=== PATIENT | female | born 1945 | race Caucasian/White ===

== ENCOUNTER 2018-04-29 18:56 | Inpatient (IN) | payer OTHER, MEDICAID ==
[~2018-04-29] VITALS: Ht 165.1 cm; Wt 108.9 kg
--- NOTE | ~2018-04-29 | EKG ---
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
--- NOTE | ~2018-04-29 | EKG ---
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
[~2018-04-29 18:56] MED LIST: ACETAMINOPHEN325 M1; ACETAMINOPHEN325 M1 PO; ACETAMINOPHN-T1 EACH PO; ALBUTEROL INH; ALBUTEROL2.5 MG/0.5; ALLEGRA180 MG PO; ALLER-EASE180 MG PO; ALTERA NEBULIZ1 EACH; AMBIEN 5 MG TABL5 M1 PO; ASPIRIN325 PO; BAYER CHEWABLE81 MG PO; CEFTIN; CEFTIN500 MG PO; COLACE100 MG; COLACE100 MG PO; COZAAR 50 MG TA50 M2 PO; CYCLOBENZAPRINE PO; DOXEPIN 50MG CA50 M1 PO; DOXEPIN 50MG CA50 MG; DOXEPIN 75 MG C75 M1 PO; DOXEPIN HCL100 MG PO; FLAGYL500 MG PO; FLEXERIL PO; FOSAMAX 35 MG35 M1 PO; FOSAMAX 35 MG35 MG PO; FUROSEMIDE 20 M20 M1 PO; GLUCOPHAGE500 MG PO; GLUMETZA500 PO; GLYCOLAX POWDER17 G1 PO; HYDROCODON-ACE1 EAC7; HYDROCODON-ACE1 EAC7 PO; IBUPROFEN 800800 M1 PO; IRON PO; KEFLEX500 M1 PO; LASIX 40 MG TAB40 MG PO; LEVOTHYROXINE0.05 MG PO; LISINOPRIL20 MG PO; LORAZEPAM 1 MG T1 MG PO; MAGNESIUM400 MG PO; MOBIC15 MG PO; MOTION RELIEF25 MG PO; MULTIVITAMINS PO; MYCOSTATIN; MYRBETRIQ50 MG PO; NEURONTIN 300M300 M2 PO; NEURONTIN 400400 M1 PO; NEURONTIN 400M400 M2 PO; NEXIUM40 MG PO; NORCO 5-325 TA1 EACH; NORCO 5-325 TA1 EACH PO; NORVASC10 MG PO; NYSTATIN 1100000 U/M PO; OXYCODONE HCL 55 MG PO; PERCOCET 5-3251 EACH PO; POTASSIUM20 PO; PREDNISONE 10 M10 M1; PREDNISONE 10 M10 M1 PO; PREDNISONE 20 M20 M1 PO; PRINIVIL20 MG PO; PROZAC 20 MG20 MG PO; PROZAC40 MG PO; QUALAQUIN324 MG PO; QVAR HFA 880 MCG/UN1 INH; ROBAXIN 750 MG750 M1 PO; SEPTRA PO; SIMVASTATIN40 MG PO; SINGULAIR 10 MG10 M1 PO; SYNTHROID50 MCG PO; TIZANIDINE HCL2 M1 PO; TRAZODONE HCL100 MG PO; ULTRACET TABLE1 EACH PO; VASOLEX OINTMEN60 G1 TP; VENTOLIN HFA INH8 GM INH; VISTARIL 25 MG25 M1 PO; VITAMIN D31000 UNI2 PO; VITAMIN E400 UNIT PO; VOLTAREN 0.1% EY5 M1; ZPAK PO; [UNRECOGNIZED DRUG - OTHER]
[2018-04-29 18:58] VITALS: BP 168/94
[2018-04-29 19:44] LABS: ABSOLUTE BASOPHILS 0.1 thou/uL (0.0-0.2); ABSOLUTE EOSINOPHILS 0.1 thou/uL (0.0-0.7); ABSOLUTE LYMPHOCYTES 1.4 thou/uL (0.8-5.3); ABSOLUTE MONOCYTES 0.5 thou/uL (0.0-1.2); ABSOLUTE NEUTROPHILS 3.1 thou/uL (1.6-8.1); BASOPHILS 2.3 %; EOSINOPHILS 1.3 %; HEMATOCRIT 36.5 % (37.0-47.0); HEMOGLOBIN 11.2 gm/dL (12.0-15.0); LYMPHOCYTES 26.4 %; MCH 22.7 pg (26.0-34.0); MCHC 30.8 g/dL (28.0-37.0); MCV 73.8 fL (80.0-100.0); MONOCYTES 9.3 %; MPV 7.4 fl. (7.2-11.1); NUCLEATED RBCS 0 /100WBC; PLATELET COUNT* 313 thou/uL (150-400); POLYS 60.7 %; RBC 4.95 mil/uL (4.20-5.00); RDW-CV 16.4 % (10.5-14.5); WBC 5.1 thou/uL (4.0-11.0)
[2018-04-29 19:55] LABS: ANION GAP 6 mmol/L (7-16); BUN 6 mg/dL (7-18); CALCIUM 9.6 mg/dL (8.5-10.1); CHLORIDE 100 mmol/L (98-107); CO2 31 mmol/L (21-32); CREATININE 0.7 mg/dL (0.6-1.3); GLUCOSE 101 mg/dL (70-99); INR 1.1; POTASSIUM 3.6 mmol/L (3.5-5.1); PROTIME 10.3 Seconds (9.20-11.50); SODIUM 137 mmol/L (136-145)
[2018-04-29 20:05] LABS: ALBUMIN 2.8 g/dL (3.4-5.0); ALKALINE PHOSPHATASE 103 U/L (46-116); NT-PRO BRAIN NAT PEPTIDE 550 pg/mL (<300); SGOT 23 U/L (15-37); SGPT 18 U/L (30-65); TOTAL BILIRUBIN 0.4 mg/dL (<0.1-1.0); TROPONIN-I LEVEL <0.06 ng/mL (<0.06)
[2018-04-29 20:10] LABS: ANISOCYTOSIS Occasional
[2018-04-29 20:15] LABS: MICROCYTES 2+; POIKILOCYTOSIS Occasional
[2018-04-29 20:16] LABS: PLATELET ESTIMATE ADEQUATE
[2018-04-29 20:19] LABS: URINE BILIRUBIN NEGATIVE (Negative); URINE BLOOD NEGATIVE (Negative); URINE CLARITY CLEAR; URINE COLOR YELLOW; URINE GLUCOSE-RANDOM NEGATIVE (Negative); URINE KETONES 1+ (Negative); URINE LEUKOCYTES-REFLEX NEGATIVE (Negative); URINE NITRITE-REFLEX NEGATIVE (Negative); URINE PROTEIN NEGATIVE (Negative); URINE SPECIFIC GRAVITY 1.015 (1.005-1.030); URINE UROBILINOGEN 0.2 E.U./dl (0.2-1.0)
[2018-04-29 21:04] VITALS: BP 159/78
[2018-04-30 04:12] LABS: HEMATOCRIT 35.2 % (37.0-47.0); HEMOGLOBIN 10.9 gm/dL (12.0-15.0); MCH 22.8 pg (26.0-34.0); MCHC 30.9 g/dL (28.0-37.0); MCV 73.7 fL (80.0-100.0); MPV 7.9 fl. (7.2-11.1); RBC 4.77 mil/uL (4.20-5.00); RDW-CV 16.1 % (10.5-14.5); WBC 3.8 thou/uL (4.0-11.0)
[2018-04-30 04:45] LABS: ALBUMIN 2.5 g/dL (3.4-5.0); CALCIUM 9.3 mg/dL (8.5-10.1); CREATININE 0.7 mg/dL (0.6-1.3); POTASSIUM 3.9 mmol/L (3.5-5.1); TOTAL BILIRUBIN 0.3 mg/dL (<0.1-1.0); TOTAL PROTEIN 7.5 g/dL (6.4-8.2)
[2018-04-30 08:00] VITALS: BP 130/70
--- NOTE | 2018-04-30 10:36 | EKG ---
[place] [address] ELECTROCARDIOGRAM REPORT Name: ANA ROSA TRAN Room: [address] ADM IN .R.#: [id number] Admission: 04/29/18 Attend Phys: Adarsh See, Discharge: Date of : 49 Report #: [id number] THIS REPORT FOR: //name// [facility] ED Test Date: 2018-04-29 Test Time: 19:24:20 Pat Name: ANA ROSA TRAN Department: Room: [address] Gender: F Events Administrative Assistant: COLEEN : 1945 Requested By: Kriss Mayo Order Number: [id number] Reading MD: Candido Lopez Measurements Intervals [place] Rate: 93 P: 64 CT: 175 QRS: -18 QRSD: 93 T: 3 QT: 377 QTc: 469 Interpretive Statements Sinus rhythm Borderline left axis deviation Compared to ECG 06/26/2013 07:39:43 No significant changes Electronically Signed On 04-30-2018 10:36:42 CDT by Candido Lopez [email or web address] <ELECTRONICALLY SIGNED> By: Maye Lopez MD, [facility] 04/30/18 1036 23 23 Maye Lopez MD, [facility] /EPI
--- NOTE | 2018-04-30 10:36 | EKG ---
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
[2018-04-30 17:11] VITALS: BP 137/55
[2018-04-30 20:20] VITALS: BP 126/58
[2018-05-01 09:10] VITALS: BP 132/85
[2018-05-01 16:00] VITALS: BP 145/76
[2018-05-01 20:20] VITALS: BP 115/63
[2018-05-02 04:32] LABS: ABSOLUTE BASOPHILS 0.1 thou/uL (0.0-0.2); ABSOLUTE EOSINOPHILS 0.2 thou/uL (0.0-0.7); ABSOLUTE LYMPHOCYTES 1.9 thou/uL (0.8-5.3); ABSOLUTE MONOCYTES 0.6 thou/uL (0.0-1.2); BASOPHILS 1.4 %; EOSINOPHILS 4.3 %; HEMATOCRIT 31.6 % (37.0-47.0); HEMOGLOBIN 9.7 gm/dL (12.0-15.0); LYMPHOCYTES 39.8 %; MCH 22.9 pg (26.0-34.0); MCHC 30.7 g/dL (28.0-37.0); MCV 74.8 fL (80.0-100.0); MONOCYTES 12.9 %; MPV 7.5 fl. (7.2-11.1); NUCLEATED RBCS 0 /100WBC; PLATELET COUNT* 244 thou/uL (150-400); POLYS 41.6 %; RBC 4.22 mil/uL (4.20-5.00); RDW-CV 16.5 % (10.5-14.5); WBC 4.8 thou/uL (4.0-11.0)
[2018-05-02 04:47] LABS: ALBUMIN 2.5 g/dL (3.4-5.0); CALCIUM 8.7 mg/dL (8.5-10.1); CREATININE 0.7 mg/dL (0.6-1.3); TOTAL BILIRUBIN 0.2 mg/dL (<0.1-1.0); TOTAL PROTEIN 5.8 g/dL (6.4-8.2)
[2018-05-02 05:36] LABS: PLATELET ESTIMATE ADEQUATE
[2018-05-02 05:37] LABS: HYPOCHROMASIA 1+
[2018-05-02 05:38] LABS: ANISOCYTOSIS 1+; MICROCYTES 1+; POIKILOCYTOSIS 1+
[2018-05-02 08:30] VITALS: BP 118/48
[2018-05-02 17:23] VITALS: BP 145/67
[2018-05-02 22:54] VITALS: BP 115/61
[2018-05-03 04:40] LABS: ABSOLUTE BASOPHILS 0.1 thou/uL (0.0-0.2); ABSOLUTE EOSINOPHILS 0.3 thou/uL (0.0-0.7); ABSOLUTE LYMPHOCYTES 1.9 thou/uL (0.8-5.3); ABSOLUTE MONOCYTES 0.5 thou/uL (0.0-1.2); ABSOLUTE NEUTROPHILS 2.3 thou/uL (1.6-8.1); BASOPHILS 1.3 %; EOSINOPHILS 5.3 %; HEMATOCRIT 31.8 % (37.0-47.0); HEMOGLOBIN 9.6 gm/dL (12.0-15.0); LYMPHOCYTES 37.4 %; MCH 22.5 pg (26.0-34.0); MCHC 30.3 g/dL (28.0-37.0); MCV 74.3 fL (80.0-100.0); MONOCYTES 10.8 %; MPV 7.5 fl. (7.2-11.1); NUCLEATED RBCS 0 /100WBC; PLATELET COUNT* 225 thou/uL (150-400); POLYS 45.2 %; RBC 4.28 mil/uL (4.20-5.00); RDW-CV 16.7 % (10.5-14.5)
[2018-05-03 05:10] LABS: ALBUMIN 2.4 g/dL (3.4-5.0); CALCIUM 8.7 mg/dL (8.5-10.1); CREATININE 0.8 mg/dL (0.6-1.3); POTASSIUM 4.1 mmol/L (3.5-5.1); TOTAL BILIRUBIN 0.2 mg/dL (<0.1-1.0); TOTAL PROTEIN 6.1 g/dL (6.4-8.2)
[2018-05-03 06:11] LABS: PLATELET ESTIMATE ADEQUATE
[2018-05-03 06:12] LABS: ANISOCYTOSIS 1+; HYPOCHROMASIA 1+; MICROCYTES 1+; POIKILOCYTOSIS 1+
[2018-05-03 08:00] VITALS: BP 118/67
[2018-05-03] MEDS ORDERED: GABAPENTIN 100100 MG PO (14:46)
[2018-05-03 14:56] VITALS: BP 118/67
== END 2018-05-03 16:58 | DRG 191 ==
LOC: M.ERS 18:56 → M.TBA-ER 20:24 → M.3W 20:24
PROVIDERS: Emergency Medicine; Internal Medicine; ADMIT Family Medicine
DX: J44.0 Chronic obstructive pulmonary disease with (acute) lower respiratory infection (principal); R65.10 Systemic inflammatory response syndrome (SIRS) of non-infectious origin without acute organ dysfunction; E44.1 Mild protein-calorie malnutrition; J96.10 Chronic respiratory failure, unspecified whether with hypoxia or hypercapnia; M80.022A Age-related osteoporosis with current pathological fracture, left humerus, initial encounter for fracture; J20.9 Acute bronchitis, unspecified; D50.9 Iron deficiency anemia, unspecified; J44.1 Chronic obstructive pulmonary disease with (acute) exacerbation; E66.01 Morbid (severe) obesity due to excess calories; F41.9 Anxiety disorder, unspecified; E78.5 Hyperlipidemia, unspecified; E03.9 Hypothyroidism, unspecified; K59.00 Constipation, unspecified; E78.00 Pure hypercholesterolemia, unspecified; G47.33 Obstructive sleep apnea (adult) (pediatric); E11.42 Type 2 diabetes mellitus with diabetic polyneuropathy; M19.90 Unspecified osteoarthritis, unspecified site; I10 Essential (primary) hypertension; K21.9 Gastro-esophageal reflux disease without esophagitis; G47.00 Insomnia, unspecified; Z68.39 Body mass index [BMI] 39.0-39.9, adult; Z87.81 Personal history of (healed) traumatic fracture; Z85.828 Personal history of other malignant neoplasm of skin; Z79.899 Other long term (current) drug therapy; Z88.0 Allergy status to penicillin; Z88.6 Allergy status to analgesic agent; Z91.048 Other nonmedicinal substance allergy status; Z87.891 Personal history of nicotine dependence; Z91.19 Patient's noncompliance with other medical treatment and regimen; Z99.81 Dependence on supplemental oxygen

== ENCOUNTER 2018-08-16 19:42 | Emergency (ER) | payer OTHER, MEDICAID ==
[~2018-08-16] VITALS: Ht 165.1 cm; Wt 113.4 kg
[~2018-08-16 19:42] MED LIST changes: +GABAPENTIN 100100 MG PO
[2018-08-16] MEDS ORDERED: NORCO 5-325 TA1 EACH PO (20:50)
[2018-08-16 21:22] VITALS: BP 138/91
== END 2018-08-16 21:25 | disposition home or self-care (01) ==
LOC: M.ERS 19:42
DX: S82.091A Other fracture of right patella, initial encounter for closed fracture (principal); E78.5 Hyperlipidemia, unspecified; F32.9 Major depressive disorder, single episode, unspecified; M81.0 Age-related osteoporosis without current pathological fracture; E03.9 Hypothyroidism, unspecified; K21.9 Gastro-esophageal reflux disease without esophagitis; I10 Essential (primary) hypertension; J44.9 Chronic obstructive pulmonary disease, unspecified; Z88.5 Allergy status to narcotic agent; Z88.0 Allergy status to penicillin; Z88.8 Allergy status to other drugs, medicaments and biological substances; W18.39XA Other fall on same level, initial encounter; Y93.89 Activity, other specified; Y92.89 Other specified places as the place of occurrence of the external cause; Y99.8 Other external cause status

== ENCOUNTER 2018-08-25 12:32 | Emergency (ER) | payer OTHER, MEDICAID ==
[~2018-08-25] VITALS: Ht 165.1 cm; Wt 118.8 kg
[2018-08-25 15:22] VITALS: BP 125/70
== END 2018-08-25 15:24 | disposition home or self-care (01) ==
LOC: M.ERS 12:32
DX: S00.83XA Contusion of other part of head, initial encounter (principal); E78.5 Hyperlipidemia, unspecified; F32.9 Major depressive disorder, single episode, unspecified; M81.0 Age-related osteoporosis without current pathological fracture; E03.9 Hypothyroidism, unspecified; K21.9 Gastro-esophageal reflux disease without esophagitis; I10 Essential (primary) hypertension; J44.9 Chronic obstructive pulmonary disease, unspecified; Z88.0 Allergy status to penicillin; Z88.5 Allergy status to narcotic agent; Z88.8 Allergy status to other drugs, medicaments and biological substances; W18.39XA Other fall on same level, initial encounter; Y93.89 Activity, other specified; Y92.89 Other specified places as the place of occurrence of the external cause; Y99.8 Other external cause status

== ENCOUNTER 2018-11-30 18:03 | Inpatient (IN) | payer OTHER, MEDICAID ==
[~2018-11-30] VITALS: Ht 165.1 cm; Wt 117.9 kg
[~2018-11-30 18:03] MED LIST changes: +COZAAR 25 MG TA25 MG PO; -COZAAR 50 MG TA50 M2 PO; -FOSAMAX 35 MG35 M1 PO; +FOSAMAX 70 MG T70 MG PO; -LEVOTHYROXINE0.05 MG PO
[2018-11-30 18:18] VITALS: BP 139/61
[2018-11-30] MEDS ORDERED: UNKNOWN ANTIBIOTIC (18:26)
[2018-11-30 18:32] LABS: URINE BILIRUBIN NEGATIVE (Negative); URINE BLOOD NEGATIVE (Negative); URINE CLARITY CLEAR; URINE COLOR YELLOW; URINE GLUCOSE-RANDOM NEGATIVE (Negative); URINE KETONES NEGATIVE (Negative); URINE PROTEIN 1+ (Negative); URINE SPECIFIC GRAVITY >= 1.030 (1.005-1.030); URINE UROBILINOGEN 0.2 E.U./dl (0.2-1.0)
[2018-11-30 18:37] LABS: URINE LEUKOCYTES-REFLEX 2+ (Negative); URINE NITRITE-REFLEX POSITIVE (Negative)
[2018-11-30 18:45] LABS: SQUAMOUS >10 Many /LPF (0-3)
[2018-11-30 18:46] LABS: BACTERIA-REFLEX >30 Many /HPF (None Seen); HYALINE CASTS 0-3 Few /LPF (None Seen); MUCUS None Seen strn/LPF (None Seen); URINE WBC-REFLEX >25 Many /HPF (0-5)
[2018-11-30 18:47] LABS: CRYSTALS None Seen /LPF (None Seen); URINE RBC None Seen /HPF (0-2)
[2018-11-30 18:54] LABS: ABSOLUTE BASOPHILS 0.1 thou/uL (0.0-0.2); ABSOLUTE EOSINOPHILS 0.1 thou/uL (0.0-0.7); ABSOLUTE MONOCYTES 0.7 thou/uL (0.0-1.2); ABSOLUTE NEUTROPHILS 3.6 thou/uL (1.6-8.1); BASOPHILS 1.2 %; EOSINOPHILS 2.3 %; HEMATOCRIT 35.3 % (37.0-47.0); HEMOGLOBIN 11.2 gm/dL (12.0-15.0); LYMPHOCYTES 30.4 %; MCH 25.1 pg (26.0-34.0); MCHC 31.8 g/dL (28.0-37.0); MCV 78.8 fL (80.0-100.0); MPV 6.8 fl. (7.2-11.1); NUCLEATED RBCS 0 /100WBC; PLATELET COUNT* 161 thou/uL (150-400); POLYS 55.1 %; RBC 4.48 mil/uL (4.20-5.00); RDW-CV 14.3 % (10.5-14.5); WBC 6.5 thou/uL (4.0-11.0)
[2018-11-30 19:08] LABS: ALBUMIN 3.2 g/dL (3.4-5.0); CALCIUM 8.8 mg/dL (8.5-10.1); CREATININE 1.2 mg/dL (0.6-1.3); POTASSIUM 4.1 mmol/L (3.5-5.1); TOTAL BILIRUBIN 0.2 mg/dL (<0.1-1.0); TOTAL PROTEIN 6.5 g/dL (6.4-8.2)
[2018-11-30 20:59] VITALS: BP 119/56
[2018-12-01 07:55] VITALS: BP 153/88
[2018-12-01 15:55] VITALS: BP 148/79
[2018-12-01 20:00] VITALS: BP 136/74
[2018-12-02 04:24] LABS: ABSOLUTE EOSINOPHILS 0.1 thou/uL (0.0-0.7); ABSOLUTE LYMPHOCYTES 1.6 thou/uL (0.8-5.3); ABSOLUTE MONOCYTES 0.5 thou/uL (0.0-1.2); ABSOLUTE NEUTROPHILS 2.1 thou/uL (1.6-8.1); EOSINOPHILS 3.2 %; HEMATOCRIT 34.1 % (37.0-47.0); HEMOGLOBIN 10.8 gm/dL (12.0-15.0); LYMPHOCYTES 36.5 %; MCHC 31.6 g/dL (28.0-37.0); MONOCYTES 12.1 %; MPV 7.4 fl. (7.2-11.1); NUCLEATED RBCS 0 /100WBC; PLATELET COUNT* 136 thou/uL (150-400); POLYS 47.2 %; RBC 4.31 mil/uL (4.20-5.00); RDW-CV 14.6 % (10.5-14.5); WBC 4.5 thou/uL (4.0-11.0)
[2018-12-02 04:45] LABS: CALCIUM 8.4 mg/dL (8.5-10.1); CREATININE 0.9 mg/dL (0.6-1.3); MAGNESIUM 1.8 mg/dL (1.8-2.4); POTASSIUM 3.9 mmol/L (3.5-5.1)
[2018-12-02 07:24] VITALS: BP 158/84
[2018-12-02 16:19] VITALS: BP 149/74
[2018-12-02 19:59] VITALS: BP 148/74
[2018-12-03 05:18] LABS: CALCIUM 8.3 mg/dL (8.5-10.1); CREATININE 0.8 mg/dL (0.6-1.3)
[2018-12-03 07:20] VITALS: BP 119/61
--- NOTE | 2018-12-03 14:52 | EKG ---
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: Jak BLACKBURN : 1945 Requested By: Solomon Dawkins Order Number: [id number] MD: Napoleon Sheppard Measurements Intervals [place] Rate: 78 P: 27 AR: 189 QRS: -12 QRSD: 104 T: 8 QT: 397 QTc: 453 Interpretive Statements Sinus rhythm Left ventricular hypertrophy, by voltage Compared to ECG 04/29/2018 19:24:20 Left ventricular hypertrophy now present Electronically Signed On 12-03-2018 14:51:51 CDT by Napoleon Sheppard [email or web address] <ELECTRONICALLY SIGNED> By: Napoleon Sheppard MD, [facility] 12/03/18 1451 1832 183 Napoleon Sheppard MD, [facility] /EPI
[2018-12-03 15:24] VITALS: BP 119/67
[2018-12-03 23:34] VITALS: BP 139/85
--- NOTE | 2018-12-04 07:56 | CON ---
[address] [address] CONSULTATION Name: ANA ROSA TRAN Room: [address] IN .R.#: [id number] Admission: 11/30/18 Attend Phys: Dustin Montes Discharge: Date of : 49 Report #: [id number] THIS REPORT FOR: //name// CC: Joao Maya DATE OF SERVICE: 12/01/2018 ATTENDING PHYSICIAN: Jermaine Maya DO. REASON FOR EVALUATION: Complicated urinary tract infection due to multiple drug-resistant organisms. HISTORY OF PRESENT ILLNESS: Chart reviewed, the patient examined. This is a 73-year-old female with known history of oxygen- requiring COPD, who generally has been feeling poorly, has a history of recurrent urinary tract infection, was diagnosed as an outpatient. Urinalysis showed marked pyuria. Did have associated symptoms with burning on urination, lower abdominal pain, growth of gram-negative multiple-drug resistant with exception of carbapenems, broad-spectrum, penicillins, and cephalosporins. She apparently had initially responded to therapy, then deteriorated, this prompted ER visit yesterday. Due to failure of outpatient therapy, she was admitted. She is generally lucid at this point. Denies significant change in her pulmonary status at this point, unclear if she has had any fevers or chills, started on meropenem. ALLERGIES: Listed to PENICILLIN, CAUSES URTICARIA. CURRENT MEDICATIONS: Include aspirin, multivitamin, gabapentin, atorvastatin, melatonin, ondansetron, losartan, levothyroxine, meropenem. PAST MEDICAL HISTORY: As noted above, COPD, O2 requiring; hypertension; reflux; hypothyroidism; osteoporosis; depression; morbid obesity; hyperlipidemia. SOCIAL HISTORY: Former smoker. No ethanol or illicit drug use. FAMILY HISTORY: Noncontributory. REVIEW OF SYSTEMS: Denies any significant gastrointestinal-related complaints of nausea, emesis or diarrhea; otherwise, unremarkable 10-point review of systems otherwise noted in history of present illness. PHYSICAL EXAMINATION: GENERAL: She is pleasant. She is in moderate distress at this point. She appears quite uncomfortable and she is morbidly obese. VITAL SIGNS: Temperature 98.9, pulse 77, respirations 20, blood pressure 119/56[place] [address] CONSULTATION Name: ANA ROSA TRAN Room: [address]#: [id number] Admission: 11/30/18 Attend Phys: Dustin Montes Discharge: Date of : 49 Report #: [id number] HEENT: He has got nasal cannula oxygen in place. Normocephalic. Extraocular muscles intact. NECK: Supple. LUNGS: Scattered coarse breath sounds, very distant. HEART: Regular, again distant. Appears to be generally regular. There are no appreciated murmur. ABDOMEN: Again wide pannus. There are no overt peritoneal signs. Cannot really to any palpable tenderness. EXTREMITIES: Distal lower extremities have edema. GENITOURINARY: Deferred. RECTAL: Deferred. LABORATORY DATA: Blood cultures sterile thus far. Lactic acid 0.8. Electrolytes: Sodium 139, potassium 4.1, chloride 101, bicarbonate is 34, BUN and creatinine 24 and 1.2, anion gap of 4. LFTs unremarkable. Albumin 3.2, total protein 6.5. Estimated GFR of 44. CBC: White count 6.5, H and H 11.2 and 35.3, platelets of 161. Urinalysis, greater than 25 white cells, greater than 30 bacteria, greater than 10 squamous. ASSESSMENT: Complicated urinary tract infection due to multiple resistant gram-negative, continue the carbapenem. Urinalysis certainly suggests significant infection. We will see how she does clinically over the course of next 24-48 hours, likely arrange for outpatient parenteral therapy given the lack of oral options at this point. We will monitor expectantly. Certainly at risk for nosocomial-related infectious complications including pneumonitis. We will add incentive spirometer and I certainly worry about her limited mobility as well risk for other complications. <ELECTRONICALLY SIGNED> By: Jax Carnes MD 12/04/18 0756 1327 [id number] Carnes MD /nt
[2018-12-04 08:15] VITALS: BP 155/86
[2018-12-04 12:51] LABS: URINE BILIRUBIN NEGATIVE (Negative); URINE BLOOD NEGATIVE (Negative); URINE CLARITY CLEAR; URINE COLOR YELLOW; URINE GLUCOSE-RANDOM NEGATIVE (Negative); URINE KETONES NEGATIVE (Negative); URINE LEUKOCYTES-REFLEX NEGATIVE (Negative); URINE NITRITE-REFLEX NEGATIVE (Negative); URINE PROTEIN NEGATIVE (Negative); URINE UROBILINOGEN 0.2 E.U./dl (0.2-1.0)
[2018-12-04 16:00] VITALS: BP 154/74
[2018-12-04 20:00] VITALS: BP 142/70
[2018-12-05 08:00] VITALS: BP 124/89
[2018-12-05 15:07] VITALS: BP 142/70
[2018-12-05 15:30] VITALS: BP 142/70
[2018-12-05] MEDS ORDERED: CYCLOBENZAPRINE5 MG PO (15:35)
[2018-12-05 21:34] VITALS: BP 142/70
== END 2018-12-05 15:00 | disposition home health service (06) | DRG 690 ==
LOC: M.ERS 18:03 → M.ORTHSURG 18:36 → M.TBA-ER 18:36 → M.ORTHSURG 21:15
PROVIDERS: Family Medicine; Nurse Practitioner Psychiatric/Mental Health; Specialist; ADMIT Internal Medicine
DX: N39.0 Urinary tract infection, site not specified (principal); N17.9 Acute kidney failure, unspecified; J96.11 Chronic respiratory failure with hypoxia; Z68.42 Body mass index [BMI] 45.0-49.9, adult; B96.4 Proteus (mirabilis) (morganii) as the cause of diseases classified elsewhere; Z16.24 Resistance to multiple antibiotics; N18.3 Chronic kidney disease, stage 3 (moderate); J44.9 Chronic obstructive pulmonary disease, unspecified; I12.9 Hypertensive chronic kidney disease with stage 1 through stage 4 chronic kidney disease, or unspecified chronic kidney disease; K21.9 Gastro-esophageal reflux disease without esophagitis; E03.9 Hypothyroidism, unspecified; G62.9 Polyneuropathy, unspecified; M81.0 Age-related osteoporosis without current pathological fracture; F32.9 Major depressive disorder, single episode, unspecified; E66.01 Morbid (severe) obesity due to excess calories; S46.812A Strain of other muscles, fascia and tendons at shoulder and upper arm level, left arm, initial encounter; X58.XXXA Exposure to other specified factors, initial encounter; Y93.89 Activity, other specified; Y92.89 Other specified places as the place of occurrence of the external cause; Y99.8 Other external cause status; Z79.1 Long term (current) use of non-steroidal anti-inflammatories (NSAID); Z79.899 Other long term (current) drug therapy; Z88.0 Allergy status to penicillin; Z91.048 Other nonmedicinal substance allergy status

== ENCOUNTER 2019-09-01 18:54 | Emergency (ER) | payer OTHER, MEDICAID ==
[~2019-09-01] VITALS: Ht 165.1 cm; Wt 122.5 kg
[~2019-09-01 18:54] MED LIST changes: +CYCLOBENZAPRINE5 MG PO; +UNKNOWN ANTIBIOTIC
[2019-09-01] MEDS ORDERED: DOXEPIN HCL100 MG PO (19:04)
[2019-09-01] MEDS ORDERED: LORCET 5-325 M1 EACH PO (21:18)
[2019-09-01 21:28] LABS: URINE BILIRUBIN NEGATIVE (Negative); URINE BLOOD NEGATIVE (Negative); URINE CLARITY CLEAR; URINE COLOR YELLOW; URINE GLUCOSE-RANDOM NEGATIVE (Negative); URINE KETONES NEGATIVE (Negative); URINE LEUKOCYTES-REFLEX TRACE (Negative); URINE NITRITE-REFLEX NEGATIVE (Negative); URINE PROTEIN NEGATIVE (Negative); URINE SPECIFIC GRAVITY 1.025 (1.005-1.030); URINE UROBILINOGEN 0.2 E.U./dl (0.2-1.0)
[2019-09-01 21:30] VITALS: BP 188/88
[2019-09-01 21:46] LABS: SQUAMOUS >10 Many /LPF (0-3)
[2019-09-01 21:47] LABS: BACTERIA-REFLEX 1-9 Few /HPF (None Seen); CASTS None Seen /LPF (None Seen); CRYSTALS None Seen /LPF (None Seen); URINE RBC None Seen /HPF (0-2); URINE WBC-REFLEX 6-15 Few /HPF (0-5)
--- NOTE | 2019-09-02 12:25 | EKG ---
[place] [address] ELECTROCARDIOGRAM REPORT Name: ANA ROSA TRAN [id number] Admission: 09/01/19 Attend Phys: Discharge: 09/01/19 Date of : 49 Report #: [id number] THIS REPORT FOR: //name// [facility] ED Test Date: 2019-09-01 Test Time: 20:30:45 Pat Name: ANA ROSA TRAN Department: Room: Gender: F Rehabilitation Technician: : 1945 Requested By: Kriss Mayo Order Number: [id number] MD: Moris Delgado Measurements Intervals [place] Rate: 66 P: 37 TX: 176 QRS: -15 QRSD: 102 T: 3 QT: 410 QTc: 430 Interpretive Statements Sinus rhythm Left ventricular hypertrophy Compared to ECG 11/30/2018 18:32:27 No significant changes Electronically Signed On 09-02-2019 12:25:34 ASSESSMENT NURSE by Moris Delgado [email or web address] <ELECTRONICALLY SIGNED> By: Moris Delgado MD, [facility] 09/02/19 1225 [facility] Moris Delgado MD, [facility]ACC /EPI
== END 2019-09-01 21:30 | disposition home or self-care (01) ==
LOC: M.ERS 18:54
PROVIDERS: Emergency Medicine
DX: M25.511 Pain in right shoulder (principal); I10 Essential (primary) hypertension; E78.5 Hyperlipidemia, unspecified; E03.9 Hypothyroidism, unspecified; J44.9 Chronic obstructive pulmonary disease, unspecified; K21.9 Gastro-esophageal reflux disease without esophagitis; M81.0 Age-related osteoporosis without current pathological fracture; F32.9 Major depressive disorder, single episode, unspecified; Z91.048 Other nonmedicinal substance allergy status; Z88.0 Allergy status to penicillin

== ENCOUNTER 2019-09-14 13:26 | Inpatient (IN) | payer OTHER, MEDICAID ==
[~2019-09-14] VITALS: Ht 165.1 cm; Wt 120.2 kg
[~2019-09-14 13:26] MED LIST changes: +LORCET 5-325 M1 EACH PO
[2019-09-14 13:36] VITALS: BP 134/92
[2019-09-14] MEDS ORDERED: LIPITOR 20 MG T20 M1 PO (13:40)
[2019-09-14 16:25] VITALS: BP 136/78
[2019-09-14 17:22] VITALS: BP 141/87
--- NOTE | 2019-09-14 18:00 | NUR ---
PATIENT ARRIVED TO UNIT AT 1700. ALERT AND ORIENTED X4. ADMISSION HISTORY AND ASSESSMENT COMPLETED AND CHARTED. VSS ON 3 LITERS 02, PATIENT USES THIS AT HOME WELL. COMPLAINT OF SHOULDER PAIN, DR PUT IN ORDERS FOR PAIN MEDS, WAITING FOR PHARMACY TO APPROVE. SLING IN PLACE ON LEFT ARM. FALL PRECAUTIONS IN PLACE. CALL LIGHT WITHIN REACH. HOURLY ROUNDS. WILL CONTINUE WITH PLAN OF CARE.
[2019-09-14 19:02] LABS: HEMATOCRIT 37.5 % (37.0-47.0); HEMOGLOBIN 11.9 gm/dL (12.0-15.0); MCH 24.6 pg (26.0-34.0); MCHC 31.7 g/dL (28.0-37.0); MCV 77.4 fL (80.0-100.0); MPV 7.4 fl. (7.2-11.1); NUCLEATED RBCS 0 /100WBC; PLATELET COUNT* 183 thou/uL (150-400); RBC 4.85 mil/uL (4.20-5.00); RDW-CV 15.7 % (10.5-14.5); WBC 13.4 thou/uL (4.0-11.0)
[2019-09-14 19:13] LABS: ALBUMIN 3.3 g/dL (3.4-5.0); CREATININE 0.8 mg/dL (0.6-1.3); TOTAL BILIRUBIN 0.6 mg/dL (<0.1-1.0); TOTAL PROTEIN 6.9 g/dL (6.4-8.2)
[2019-09-14 19:53] LABS: ABSOLUTE LYMPHOCYTES 1.1 thou/uL (0.8-5.3); ABSOLUTE MONOCYTES 1.1 thou/uL (0.0-1.2); ABSOLUTE NEUTROPHILS 11.3 thou/uL (1.6-8.1)
[2019-09-14 19:54] LABS: HYPOCHROMASIA 1+; MICROCYTES Occasional; PLATELET ESTIMATE ADEQUATE
[2019-09-14 20:07] VITALS: BP 172/86
--- NOTE | 2019-09-15 06:09 | NUR ---
ASSUMED CARE OF PT 09/14/19 AT APPROX 1900, PT A&OX4 THROUGHOUT SHIFT, VSS, PT ON 3L O2 NC, OXY IR GIVEN ONCE AND MORPHINE GIVEN APPROX Q2HRS ORDERED AND REQUESTED BY PT, PT WAS ABLE TO SLEEP BETWEEN PAIN MED ADMINISTRATIONS, ASSESSMENTS AND HOURLY ROUNDINGS COMPLETED, WILL CONTINUE TO MONITOR.
[2019-09-15 08:35] VITALS: BP 107/58
[2019-09-15 11:07] LABS: ABSOLUTE LYMPHOCYTES 0.8 thou/uL (0.8-5.3); ABSOLUTE MONOCYTES 0.8 thou/uL (0.0-1.2); ABSOLUTE NEUTROPHILS 9.4 thou/uL (1.6-8.1); BASOPHILS 0.3 %; EOSINOPHILS 0.3 %; HEMATOCRIT 37.2 % (37.0-47.0); HEMOGLOBIN 11.6 gm/dL (12.0-15.0); LYMPHOCYTES 7.6 %; MCH 24.6 pg (26.0-34.0); MCHC 31.2 g/dL (28.0-37.0); MPV 7.6 fl. (7.2-11.1); NUCLEATED RBCS 0 /100WBC; PLATELET COUNT* 164 thou/uL (150-400); POLYS 84.8 %; RBC 4.71 mil/uL (4.20-5.00); WBC 11.1 thou/uL (4.0-11.0)
[2019-09-15 11:25] LABS: ALBUMIN 3.2 g/dL (3.4-5.0); CALCIUM 9.3 mg/dL (8.5-10.1); CREATININE 0.9 mg/dL (0.6-1.3); POTASSIUM 4.4 mmol/L (3.5-5.1); TOTAL BILIRUBIN 0.5 mg/dL (<0.1-1.0); TOTAL PROTEIN 7.1 g/dL (6.4-8.2)
[2019-09-15 17:42] VITALS: BP 105/54
--- NOTE | 2019-09-15 18:10 | NUR ---
PATIENT PLEASANT AND COOPERATIVE W/ ASSESS AND CARES. SLING TO LUE ON. SEE MAR. IV SITE CHANGED THIS SHIFT. IV FLUIDS INFUSING W/O DIFF AT THIS TIME. PATIENT RESTING IN BED AT THIS TIME. TRANSFER/ AMBULATION W/ SBA. UP TO CHAIR DURING SHIFT. FAMILY MEMBER IN TO SEE PATIENT EARLIER IN SHIFT. CALL LIGHT IN REACH. HRLY ROUNDS DONE. HOB UP TO PATIENT COMFORT. RM DARKENED. TV ON. ~TJRN
[2019-09-15 20:20] VITALS: BP 133/69
--- NOTE | 2019-09-16 04:46 | NUR ---
PATIENT HAS REMAINED ALERT AND ORIENTED X 4 THROUGHOUT THE SHIFT AND RESTING QUIETLY ON HOURLY ROUNDS. UP TO BSC WITH MIN/MOD ASSIST OF ONE. LEFT UE IN SLING. PULSES/SENSATION INTACT TO ALL EXTREMITIES. MEDICATED FOR PAIN X 2 OF THIS WRITING TO GOOD EFFECT. VITAL SIGNS STABLE. CONTINUE TO MONITOR.
[2019-09-16 09:40] VITALS: BP 119/66
[2019-09-16 13:37] LABS: ALBUMIN 2.8 g/dL (3.4-5.0); CALCIUM 8.7 mg/dL (8.5-10.1); CREATININE 0.7 mg/dL (0.6-1.3); POTASSIUM 3.9 mmol/L (3.5-5.1); TOTAL BILIRUBIN 0.4 mg/dL (<0.1-1.0); TOTAL PROTEIN 5.9 g/dL (6.4-8.2)
[2019-09-16 14:47] LABS: ABSOLUTE EOSINOPHILS 0.1 thou/uL (0.0-0.7); ABSOLUTE LYMPHOCYTES 1.1 thou/uL (0.8-5.3); ABSOLUTE MONOCYTES 0.8 thou/uL (0.0-1.2); ABSOLUTE NEUTROPHILS 7.1 thou/uL (1.6-8.1); BASOPHILS 0.4 %; EOSINOPHILS 1.4 %; HEMATOCRIT 33.6 % (37.0-47.0); HEMOGLOBIN 10.6 gm/dL (12.0-15.0); LYMPHOCYTES 12.4 %; MCHC 31.5 g/dL (28.0-37.0); MCV 79.2 fL (80.0-100.0); MONOCYTES 8.5 %; MPV 7.2 fl. (7.2-11.1); NUCLEATED RBCS 0 /100WBC; PLATELET COUNT* 130 thou/uL (150-400); POLYS 77.3 %; RBC 4.24 mil/uL (4.20-5.00); RDW-CV 15.6 % (10.5-14.5); WBC 9.2 thou/uL (4.0-11.0)
[2019-09-16 16:50] VITALS: BP 149/77
--- NOTE | 2019-09-16 17:43 | NUR ---
PATIENT ALERT AND ORIENTED, PLEASANT AND COOPERATIVE THRU SHIFT. SEE MAR. SLING TO LUE ON. SBA TO BSC. HOB UP TO PATIENT COMFORT. O2 3L/NC, AT HOME. IV FLUIDS INFUSING W/O DIFF. CURRENTLY RESTING IN BED, TV ON. CALL LIGHT IN REACH. HRLY ROUNDS DONE. ~TJRN
[2019-09-16 20:33] VITALS: BP 149/79
--- NOTE | 2019-09-17 05:37 | NUR ---
PATIENT REPORTED PAIN 8/10 THROUGH SHIFT. RECEIVED MORPHINE Q4 AND OXY 5MG UPON REQUEST. DOES HAVE FREQUENT URINATION AND IS UP TO COMMODE WITH ASSISTANCE. PAIN IS STILL AN ISSUE. HAD 3L OXYGEN ON ALL NIGHT. PLAN IS TO WORK WITH PT/OT FOR EVALUATION AND TREATMENT TO DETERMINE LUE RESTRICTION AND MONITOR PAIN. NO SURGERY PLANNED. WILL CONTINUE TO FOLLOW PLAN OF CARE.
[2019-09-17 08:02] VITALS: BP 159/75
--- NOTE | 2019-09-17 13:29 | NUR ---
CM SENT REFERRAL TO [facility] (F) AND [facility] [phone]. RABIA FROM [facility] CALLED STATED THEY ARE WILLING TO ACCEPT PT. RABIA IS AWAITING INSURANCE AUTH.
--- NOTE | 2019-09-17 13:43 | NUR ---
Nutrition: Pt admitted with humerus FX. Chronic resp failure, on 3L. Assessed for high BMI. Wt: 265#. Regular diet, fair appetite. +BM yday. alb 2.8, prealb 14.6. Mildly depleted protein stores. Encourage good po intake at meals. Otherwise, mild risk.
[2019-09-17 15:22] VITALS: BP 129/66
--- NOTE | 2019-09-17 16:20 | NUR ---
cm completed assessment to discuss d/c planning. pt lives alone. has aid 5x/wk.pt stated family and friends are supportive and help when she needs it. pt has hx w/ [facility] and [facility], which she states she refused to ever go back there. pt has walker, cane and power w/c. ambulates some. aid assist w/adls. not very active. cm informed pt she was accepted at [facility] and we are awaiting insurance auth. pt is in agreement w/plan. cm to remain avail to cont w/d/c planning.
--- NOTE | 2019-09-17 18:10 | NUR ---
PT A&Ox4. VITALS STABLE. DENIED N/V. IV PATENT. PAIN PARTIALLY CONTROLLED. UP WITH 1. ON 3LO2. TOLERATING DIET. SLING IN PLACE. ENCOURAGED PT TO SIT UP. NWB ON LUE. FALL PRECAUTIONS IN PLACE. CALL LIGHT WITHIN REACH. WILL CONTINUE TO MONITOR.
[2019-09-17 19:40] VITALS: BP 165/87
--- NOTE | 2019-09-18 04:42 | NUR ---
PT ON 3L O2 BY NC. MEDS GIVEN ORDERED. UP TO BSC WITH MINIMUM ASSIST. PAIN CONTROLLED BY HYDROCODONE AND SCHEDULED TRAMADOL. SLING IN PLACE. CALL LIGHT WITHIN REACH. SLEEPING ON HOURLY ROUNDS. WILL CONTINUE TO MONITOR.
--- NOTE | 2019-09-18 05:17 | NUR ---
PT ON 3L. MEDS GIVEN ORDERED. PAIN CONTROLLED BY OXY IR AND SCHEDULED TRAMADOL. UP TO BSC WITH MINIMUM ASSIST. SLING IN PLACE. CALL LIGHT WITHIN REACH. SLEEPING ON HOURLY ROUNDS. WILL CONTINUE TO MONITOR.
[2019-09-18 07:34] VITALS: BP 155/80
[2019-09-18] MEDS ORDERED: LORAZEPAM 1 MG T1 MG PO (08:03)
[2019-09-18] MEDS ORDERED: ONDANSETRON HCL4 M2 PO (08:03)
[2019-09-18] MEDS ORDERED: LIDOPATCH1 EACH TOP (08:03)
[2019-09-18] MEDS ORDERED: DULCOLAX5 MG PO (08:03)
[2019-09-18] MEDS ORDERED: TRAMADOL 50 MG50 MG PO (08:03)
[2019-09-18] MEDS ORDERED: OXYCODONE HCL 55 MG PO (08:03)
[2019-09-18 10:05] VITALS: BP 155/80
--- NOTE | 2019-09-18 10:46 | NUR ---
SW called admissions at [facility] to follow up on status of referral and insurance auth pending. SW received call back from admissions at SNF and provided approval and auth received; transportation arranged for between 11 and 11:30. Pt nurse aware. SW spoke with pt and pt in agreement with plan. Pt said that her dtrs were working so pt did not want SW to call them but pt said she would text them the dc plan. SW provided number for nurse to call report and US copied chart for continuation of care. [facility] ph [phone]
--- NOTE | 2019-09-18 12:07 | NUR ---
PT DISCHARGED AT 1206 BY WHEELCHAIR TO [facility]. IV OUT. PAIN CONTROLLED. REPORT CALLED AT 1030. PERSONAL BELONGINGS SENT WITH PT. SCRIPTS SENT IN PACKET. PT STABLE UPON DISCHARGE
== END 2019-09-18 12:11 | DRG 543 ==
LOC: M.ERS 13:26 → M.ORTHSURG 15:29 → M.TBA-ER 15:29 → M.ORTHSURG 16:46
PROVIDERS: ADMIT Internal Medicine
DX: M80.022A Age-related osteoporosis with current pathological fracture, left humerus, initial encounter for fracture (principal); Z68.41 Body mass index [BMI] 40.0-44.9, adult; J96.11 Chronic respiratory failure with hypoxia; E66.01 Morbid (severe) obesity due to excess calories; W01.198A Fall on same level from slipping, tripping and stumbling with subsequent striking against other object, initial encounter; Y93.01 Activity, walking, marching and hiking; E78.5 Hyperlipidemia, unspecified; F32.9 Major depressive disorder, single episode, unspecified; E03.9 Hypothyroidism, unspecified; K21.9 Gastro-esophageal reflux disease without esophagitis; I10 Essential (primary) hypertension; J44.9 Chronic obstructive pulmonary disease, unspecified; R32 Unspecified urinary incontinence; N32.89 Other specified disorders of bladder; G62.9 Polyneuropathy, unspecified; F41.9 Anxiety disorder, unspecified; Z79.82 Long term (current) use of aspirin; Y99.8 Other external cause status; Z79.891 Long term (current) use of opiate analgesic; Z79.899 Other long term (current) drug therapy; Y92.018 Other place in single-family (private) house as the place of occurrence of the external cause; Z88.0 Allergy status to penicillin; Z91.048 Other nonmedicinal substance allergy status; Z86.73 Personal history of transient ischemic attack (TIA), and cerebral infarction without residual deficits; Z91.81 History of falling; Z80.0 Family history of malignant neoplasm of digestive organs; Z80.1 Family history of malignant neoplasm of trachea, bronchus and lung; Z80.42 Family history of malignant neoplasm of prostate; Z87.891 Personal history of nicotine dependence